=== PATIENT | male | born 2000 | race Hispanic/Latino ===

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

== ENCOUNTER 2019-05-05 08:14 | Emergency (ER) | payer SELFPAY ==
[2019-05-05] MEDS ORDERED: LIDOCAINE 1% 10 ML VIAL INJ ONE (08:23)
[2019-05-05] MEDS ORDERED: CHLORHEXIDINE GLUCONATE 4 % 15 ML UD TOP ONE (08:24)
[2019-05-05 08:51] VITALS: O2SAT 98
--- NOTE | 2019-05-05 08:52 | ED.PDOC ---
History of Present Illness - General Chief Complaint: Laceration Stated Complaint: Forehead laceration Time Seen by Provider: 05/05/19 08:30 Source: patient Exam Limitations: no limitations - History of Present Illness Initial Comments: At work where patient builds fences, he struck a fence. The hammer slipped in his hand and ricochetted to where it bounced up and struck him on the forehead. It created a small laceration. No LOC. No AMS. Denies any other c/o. Severity: moderate Improving Factors: nothing Worsening Factors: nothing Associated Symptoms: denies symptoms Allergies/Adverse Reactions: Allergies NO KNOWN ALLERGY Allergy (Verified 03/16/14 07:53) Home Medications: Ambulatory Orders Oseltamivir Capsule [Tamiflu] 75 mg PO BID 5 Days #10 capsule 05/31/18 Review of Systems - Review of Systems Constitutional: States: no symptoms reported EENTM: States: no symptoms reported Respiratory: States: no symptoms reported Cardiology: States: no symptoms reported Gastrointestinal/Abdominal: States: no symptoms reported Genitourinary: States: no symptoms reported Musculoskeletal: States: no symptoms reported Skin: States: see HPI, lesions. Denies: lumps, rash Neurological: Denies: headache, numbness, paresthesia, tingling, weakness Endocrine: States: no symptoms reported Hematologic/Lymphatic: States: no symptoms reported All other Systems: Reviewed and Negative Past Medical History (General) - Patient Medical History Hx Seizures: No Hx Stroke: No Hx Dementia: No Hx Asthma: No Hx of COPD: No Hx Cardiac Disorders: No Hx Congestive Heart Failure: No Hx Pacemaker: No Hx Hypertension: No Hx Thyroid Disease: No Hx Diabetes: No Hx Gastroesophageal Reflux: No Hx Renal Disease: No Hx Cancer: No Hx of HIV: No Hx Hepatitis C: No Hx MRSA: No - Vaccination History Hx Tetanus, Diphtheria Vaccination: Yes Hx Influenza Vaccination: No Hx Pneumococcal Vaccination: No - Social History Hx Tobacco Use: No Hx Chewing Tobacco Use: No Hx Alcohol Use: No Hx Substance Use: No Hx Substance Use Treatment: No Hx Depression: No Hx Physical Abuse: No Hx Emotional Abuse: No Hx Suspected Abuse: No - Female History Patient : No Family Medical History - Family History Mother Living Status: Still Living Hx Family Diabetes: Yes Physical Exam - Physical Exam General Appearance: Alert, No apparent distress Eye Exam: bilateral normal Ears, Nose, Throat: hearing grossly normal, normal ENT inspection, normal p harynx Neck: non-tender, full range of motion, supple Respiratory: no respiratory distress, no accessory muscle use Cardiovascular/Chest: regular rate, rhythm Peripheral Pulses: radial,right: 2+, radial,left: 2+ Extremity: normal range of motion, normal inspection 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 Full thickness. Clean base. No foreign material. Edges approximate easily. Progress - Progress Progress: 05/05/19 08:57 Pt prefers to close with skin glue instead of sutures. This is reasonable, given the edges easily approximate and it is a low-tension area, thus it will heal well with glue and steri-strips. 05/05/19 08:59 Procedures - Laceration/Wound Repair Right Face Wound Length (cm): 2.1 Wound's Depth, Shape: superficial, linear Wound Explored: no foreign body removed Betadine Prep?: No - Cleansed with Hibiclenz. Volume Anesthetic (cc's): 0 Wound Debrided: minimal Wound Repaired With: dermabond Layer Closure?: No Sterile Dressing Applied?: Yes - 1/8 inch Steri strips Departure - Departure Clinical Impression: Laceration of forehead Qualifiers: Encounter type: initial encounter Qualified Code(s): S01.81XA - Laceration without foreign body of other part of head, initial encounter Disposition: Discharge to Home or Self Care Condition: Excellent Departure Forms: ED Discharge - Pt. Copy, Patient Portal Self Enrollment Diet: resume usual diet Activity: increase activity as tolerated Home Medications: Ambulatory Orders Oseltamivir Capsule [Tamiflu] 75 mg PO BID 5 Days #10 capsule 05/31/18 Additional Instructions: Please leave the steri strips in place until the fall off naturally. At that point, then commence twice daily cleansing the wound with soapy water and applying Bacitracin antibiotic ointment and covering with a band aid. Continue this regimen for several weeks until the wound is 100% healed and the scar disappears.
[2019-05-05 09:13] VITALS: BP 125/85; TEMP 97.2
== END 2019-05-05 08:55 | disposition home or self-care (01) ==
LOC: ER 08:14
DX: S01.81XA Laceration without foreign body of other part of head, initial encounter (principal); W27.8XXA Contact with other nonpowered hand tool, initial encounter; Y99.0 Civilian activity done for income or pay; Y92.69 Other specified industrial and construction area as the place of occurrence of the external cause